=== PATIENT | female | born 1960 | race Caucasian/White ===

== ENCOUNTER → 2016-05-17 | Outpatient (CLI) | payer OTHER | END | disposition home or self-care (01) | LOC: LABWHC1 07:00 | PROVIDERS: ATTEND Internal Medicine | DX: E03.9 Hypothyroidism, unspecified (principal) | CPT/HCPCS: 36415; 82306; 84439; 84443; 84481 ==

== ENCOUNTER → 2016-07-01 | Outpatient (CLI) | payer OTHER ==
[2016-07-01 08:00] LABS: Basophils % (A) 1 %; CH 31.3; CHCM 32.9; Eosinophils # (A) 0.3 k/uL (0-0.7); Eosinophils % (A) 8 %; HCT 41.9 % (34.0-46.0); HDW 2.55; HGB 13.6 gm/dL (11.4-16.0); Luc # (Auto) 0.16; Luc % (Auto) 4; Lymphocytes # (A) 1.7 k/uL (1.0-4.8); Lymphocytes % (A) 41 %; MCHC 32.5 g/dL (31.0-37.0); MCV 95.3 fL (80.0-100.0); Mean Platelet Volume 6.9; Monocytes # (A) 0.4 k/uL (0-1.0); Monocytes % (A) 9 %; Neutrophils # (A) 1.6 k/uL (1.3-7.7); Neutrophils % (A) 39 %; RDW 12.6 % (11.5-15.5); WBC 4.3 k/uL (3.8-10.6); WBC (Perox) 4.54
--- NOTE | 2016-07-01 08:05 | XR ---
EXAMINATION TYPE: XR chest 1V DATE OF EXAM: 07/01/2016 7:55 AM COMPARISON: Prior chest x-ray September 16, 2009. HISTORY: History of TB presents with cough since March TECHNIQUE: Single frontal view of the chest is obtained. FINDINGS: There is no focal air space opacity, pleural effusion, or pneumothorax seen. The cardiac silhouette size is within normal limits. There is partial visualization of fusion plate lower cervica l spine on current study. IMPRESSION: No acute pulmonary process currently.
[2016-07-01 10:32] LABS: ALT 34 U/L (9-52); AST 21 U/L (14-36); Alkaline Phosphatase 51 U/L (38-126); Anion Gap 6 mmol/L; Blood Urea Nitrogen 13 mg/dL (7-17); Calcium 9.3 mg/dL (8.4-10.2); Carbon Dioxide 26 mmol/L (22-30); Chloride 111 mmol/L (98-107); Glucose 98 mg/dL (74-99); Non-African American GFR(MDRD) >60 (>60 ml/min/1.73 sqM); Potassium 4.5 mmol/L (3.5-5.1); Sodium 143 mmol/L (137-145); Total Bilirubin 0.4 mg/dL (0.2-1.3); Total Protein 6.6 g/dL (6.3-8.2)
[2016-07-01 12:24] LABS: Hepatitis B Core IgM Index 0.07
[2016-07-01 12:36] LABS: Hepatitis C Virus IgG Index 0.02
[2016-07-01 12:41] LABS: Hepatitis B Surface Antibody Negative (Negative)
[2016-07-01 12:42] LABS: Hepatitis C Virus IgG Ab Negative (Negative)
== END | disposition home or self-care (01) ==
LOC: LABWHC1 07:28
PROVIDERS: ATTEND Internal Medicine
DX: R05 Cough (principal); E03.9 Hypothyroidism, unspecified; E55.9 Vitamin D deficiency, unspecified; M05.79 Rheumatoid arthritis with rheumatoid factor of multiple sites without organ or systems involvement
CPT/HCPCS: 36415; 71010; 80053; 82306; 84439; 84443; 84481; 85025; 86480; 86704; 86705; 86706; 86803; 87340

== ENCOUNTER → 2016-09-23 | Outpatient (CLI) | payer OTHER ==
[2016-09-23 09:54] LABS: Basophils % (A) 1 %; CH 30.6; CHCM 32.3; Eosinophils # (A) 0.2 k/uL (0-0.7); Eosinophils % (A) 5 %; HCT 43.5 % (34.0-46.0); HDW 2.63; Luc # (Auto) 0.17; Luc % (Auto) 4; Lymphocytes # (A) 1.2 k/uL (1.0-4.8); Lymphocytes % (A) 31 %; MCH 30.5 pg (25.0-35.0); MCHC 32.1 g/dL (31.0-37.0); MCV 95.1 fL (80.0-100.0); Mean Platelet Volume 6.9; Monocytes # (A) 0.5 k/uL (0-1.0); Monocytes % (A) 12 %; Neutrophils # (A) 1.8 k/uL (1.3-7.7); Neutrophils % (A) 46 %; RBC 4.57 m/uL (3.80-5.40); RDW 13.2 % (11.5-15.5); WBC (Perox) 4.24
[2016-09-23 11:05] LABS: ALT 46 U/L (9-52); AST 30 U/L (14-36); Blood Urea Nitrogen 9 mg/dL (7-17); Non-African American GFR(MDRD) >60 (>60 ml/min/1.73 sqM)
[2016-09-23 11:37] LABS: Estradiol 99 pg/mL
== END | disposition home or self-care (01) ==
LOC: LABWHC1 09:09
PROVIDERS: ATTEND Internal Medicine Rheumatology
DX: N95.1 Menopausal and female climacteric states (principal); R61 Generalized hyperhidrosis; M05.79 Rheumatoid arthritis with rheumatoid factor of multiple sites without organ or systems involvement
CPT/HCPCS: 36415; 82565; 82670; 83001; 84403; 84450; 84460; 84520; 85025

== ENCOUNTER → 2016-12-28 | Outpatient (CLI) | payer OTHER ==
--- NOTE | 2016-12-28 09:54 | XR ---
EXAMINATION TYPE: XR foot complete RT DATE OF EXAM: 12/28/2016 CLINICAL HISTORY: pain TECHNIQUE: Frontal, lateral and oblique images of the right foot are obtained. COMPARISON: None. FINDINGS: There is no acute fracture/dislocation evident. The joint spaces appear within normal khoury its. The overlying soft tissue appears unremarkable. Small plantar calcaneal spur noted. IMPRESSION: There is no acute fracture or dislocation. ICD 10 NO FRACTURE, INITIAL EVALUATION
[2016-12-28 10:18] LABS: Basophils % (A) 1 %; CH 29.7; CHCM 32.6; Eosinophils # (A) 0.1 k/uL (0-0.7); Eosinophils % (A) 3 %; HCT 45.5 % (34.0-46.0); HDW 3.05; HGB 15.2 gm/dL (11.4-16.0); Luc # (Auto) 0.15; Luc % (Auto) 3; Lymphocytes # (A) 1.6 k/uL (1.0-4.8); Lymphocytes % (A) 29 %; MCH 30.6 pg (25.0-35.0); MCHC 33.4 g/dL (31.0-37.0); MCV 91.6 fL (80.0-100.0); Mean Platelet Volume 7.4; Monocytes # (A) 0.5 k/uL (0-1.0); Monocytes % (A) 9 %; Neutrophils % (A) 56 %; RBC 4.97 m/uL (3.80-5.40); RDW 13.6 % (11.5-15.5); WBC 5.3 k/uL (3.8-10.6); WBC (Perox) 5.47
[2016-12-28 10:44] LABS: ALT 51 U/L (9-52); AST 44 U/L (14-36); Alkaline Phosphatase 86 U/L (38-126); Anion Gap 10 mmol/L; Blood Urea Nitrogen 9 mg/dL (7-17); Calcium 9.4 mg/dL (8.4-10.2); Carbon Dioxide 26 mmol/L (22-30); Chloride 105 mmol/L (98-107); Cholesterol 309 mg/dL (<200); Glucose 90 mg/dL (74-99); HDL Cholesterol 100 mg/dL (40-60); Non-African American GFR(MDRD) >60 (>60 ml/min/1.73 sqM); Sodium 141 mmol/L (137-145); Total Bilirubin 0.6 mg/dL (0.2-1.3); Total Protein 7.2 g/dL (6.3-8.2)
== END | disposition home or self-care (01) ==
LOC: LABWHC1 08:51
PROVIDERS: ATTEND Internal Medicine
DX: M25.671 Stiffness of right ankle, not elsewhere classified (principal); I10 Essential (primary) hypertension; E78.2 Mixed hyperlipidemia; E03.9 Hypothyroidism, unspecified; E55.9 Vitamin D deficiency, unspecified
CPT/HCPCS: 36415; 80053; 80061; 82306; 84439; 84443; 84481; 85025

== ENCOUNTER → 2017-08-24 | Outpatient (CLI) | payer OTHER ==
[2017-08-24 22:20] LABS: Hemoglobin A1C 5.4 % (4.0-6.0)
== END ==
LOC: LABWHC1 12:27
PROVIDERS: ATTEND Obstetrics & Gynecology
DX: E03.9 Hypothyroidism, unspecified (principal); R73.9 Hyperglycemia, unspecified; Z79.890 Hormone replacement therapy
CPT/HCPCS: 36415; 82670; 83001; 83036; 84403

== ENCOUNTER → 2017-12-26 | Outpatient (CLI) | payer OTHER ==
[2017-12-26 08:08] LABS: ALT 30 U/L (9-52); AST 27 U/L (14-36); Albumin 3.6 g/dL (3.5-5.0); Alkaline Phosphatase 64 U/L (38-126); Anion Gap 7 mmol/L; Blood Urea Nitrogen 16 mg/dL (7-17); Calcium 9.4 mg/dL (8.4-10.2); Carbon Dioxide 26 mmol/L (22-30); Chloride 107 mmol/L (98-107); Cholesterol 185 mg/dL (<200); Glucose 100 mg/dL (74-99); HDL Cholesterol 53 mg/dL (40-60); LDL Cholesterol,Calculated 117 mg/dL (0-99); Potassium 4.4 mmol/L (3.5-5.1); Sodium 140 mmol/L (137-145); Total Bilirubin 0.6 mg/dL (0.2-1.3); Total Protein 6.4 g/dL (6.3-8.2); Triglycerides 77 mg/dL (<150)
[2017-12-26 08:19] LABS: T4, Free (Free Thyroxine) 1.69 ng/dL (0.78-2.19)
== END | disposition home or self-care (01) ==
LOC: LABWHC1 07:10
PROVIDERS: ATTEND Internal Medicine
DX: E78.2 Mixed hyperlipidemia (principal); E03.9 Hypothyroidism, unspecified
CPT/HCPCS: 36415; 80053; 80061; 84439; 84443; 84481

== ENCOUNTER → 2017-12-28 | Outpatient (CLI) | payer OTHER ==
--- NOTE | 2017-12-29 15:17 | MM ---
Reason for exam: screening (asymptomatic). Last mammogram was performed 4 years and 3 months ago. History: Patient is postmenopausal. Family history of breast cancer in mother at age 30. Benign excisional biopsy of the left breast, March 09, 2006. Took estrogen for 3 months. Physical Findings: A clinical breast exam by your physician is recommended on an annual basis and results should be correlated with mammographic findings. MG Screening Mammo w CAD Bilateral CC and MLO view(s) were taken. Prior study comparison: September 18, 2013, bilateral MG screening mammo w CAD. May 24, 2012, bilateral digital screening mammo w/CAD. The breast tissue is extremely dense which could obscure a lesion on mammography. Finding: There are new calcifications in the upper outer quadrant, posterior third position of the right breast. New finding since September 18, 2013 and May 24, 2012. ASSESSMENT: Incomplete: need additional imaging evaluation, BI-RAD 0 RECOMMENDATION: Special view mammogram of the right breast. [facility] will attempt to contact patient to return for supplemental views.
== END | disposition home or self-care (01) ==
LOC: RADMAMWWP 13:31
PROVIDERS: ATTEND Internal Medicine
DX: Z12.31 Encounter for screening mammogram for malignant neoplasm of breast (principal)
CPT/HCPCS: 77067

== ENCOUNTER → 2018-01-03 | Outpatient (CLI) | payer OTHER ==
--- NOTE | 2018-01-03 12:47 | MM ---
Reason for exam: additional evaluation requested from abnormal screening. Last mammogram was performed less than 1 month ago. History: Patient is postmenopausal. Family history of breast cancer in mother at age 30. Benign excisional biopsy of the left breast, March 09, 2006. Took estrogen for 3 months. Physical Findings: Nurse did not find any significant physical abnormalities on exam. MG Work Up Mamm w CAD RT CC with magnification and LM with magnification view(s) were taken of the right breast. Prior study comparison: December 28, 2017, bilateral MG screening mammo w CAD. September 18, 2013, bilateral MG screening mammo w CAD. The breast tissue is heterogeneously dense. This may lower the sensitivity of mammography. No significant new findings when compared with previous films. These results were verbally communicated with the patient and result sheet given to the patient on 01/03/18. ASSESSMENT: Benign, BI-RAD 2 RECOMMENDATION: Return to routine screening mammogram schedule for both breasts.
== END | disposition home or self-care (01) ==
LOC: RADMAMWWP 10:52
PROVIDERS: ATTEND Internal Medicine
DX: R92.8 Other abnormal and inconclusive findings on diagnostic imaging of breast (principal)
CPT/HCPCS: 77065

== ENCOUNTER → 2018-05-30 | Outpatient (CLI) | payer OTHER ==
--- NOTE | 2018-05-31 11:56 | XR ---
EXAMINATION TYPE: XR chest 2V DATE OF EXAM: 05/30/2018 COMPARISON: 07/01/2016 INDICATION: Cough x1 month TECHNIQUE: Frontal and lateral views of the chest are obtained. FINDINGS: The heart size is normal. The pulmonary vasculature is normal. The lungs are clear. IMPRESSION: 1. No acute pulmonary process.
== END ==
LOC: RADXRMAIN 16:37
PROVIDERS: ATTEND Ophthalmology
DX: R05 Cough (principal)
CPT/HCPCS: 71046

== ENCOUNTER → 2018-08-22 | Outpatient (CLI) | payer OTHER ==
--- NOTE | 2018-08-22 12:14 | CT ---
EXAMINATION TYPE: High resolution CT chest DATE OF EXAM: 08/22/2018 COMPARISON: Radiographs 05/30/2018 HISTORY: 58-year-old female Cough-5 months-non productive TECHNIQUE: Contiguous high resolution axial scanning of the chest without IV contrast utilizing 1 mm slice thickness and 1 cm gap for HRCT protocol. Both supine and prone imaging was performed. CT DLP: 201 mGycm Automated exposure control for dose reduction was used. FINDINGS: Heart normal size without pericardial effusion. Aorta normal caliber with mild atherosclerotic arch calcifications and conventional arch vessel branc bird anatomy. No thoracic lymphadenopathy by CT size criteria. Evaluation of the lungs shows mild diffuse bronchial wall thickening. Some mild patchy density at the inferior lingula. Additional strandy bibasilar densities. No honeycombing, bronchiectasis, centrilobular nodules, dominant groundglass, tree-in-bud opacities, or cystic change. HRCT technique limits assessment for small pulmonary nodules. Visualized upper abdomen shows no gross abnormality. Bones: Mild endplate spondylosis mid to lower thoracic spine. IMPRESSION: 1. SOME MILD PATCHY DENSITY AT THE INFERIOR LINGULA PERSISTS ON BOTH SUPINE AND PRONE IMAGING. PERSIS TENT ATELECTASIS VS DEVELOPING INFILTRATE ARE CONSIDERATIONS. 2. ADDITIONAL STRANDY AREAS OF BIBASILAR ATELECTASIS. NO SPECIFIC HRCT FINDINGS OF INTERSTITIAL PNEUM ONITIS OR FIBROSIS.
== END | disposition home or self-care (01) ==
LOC: RADCTMAIN 11:11
PROVIDERS: ATTEND Internal Medicine Critical Care Medicine
DX: J98.11 Atelectasis (principal); R91.8 Other nonspecific abnormal finding of lung field
CPT/HCPCS: 71250

== ENCOUNTER → 2019-02-27 | Outpatient (CLI) | payer OTHER ==
--- NOTE | 2019-02-28 11:54 | MM ---
Reason for exam: screening (asymptomatic). Last mammogram was performed 1 year and 2 months ago. History: Patient is postmenopausal. Family history of breast cancer in mother at age 30. Benign excisional biopsy of the left breast, March 09, 2006. Took estrogen for 3 months. Physical Findings: A clinical breast exam by your physician is recommended on an annual basis and results should be correlated with mammographic findings. MG 3D Screening Mammo W/Cad Bilateral CC and MLO view(s) were taken. XCCL view(s) were taken of the right breast. Prior study comparison: January 03, 2018, right breast MG work up mamm w CAD RT. December 28, 2017, bilateral MG screening mammo w CAD. The breast tissue is extremely dense which could obscure a lesion on mammography. There are benign appearing round calcifications bilaterally. There is no discrete abnormality. ASSESSMENT: Negative, BI-RAD 1 RECOMMENDATION: Routine screening mammogram of both breasts in 1 year.
== END | disposition home or self-care (01) ==
LOC: RADMAMWWP 07:33
PROVIDERS: ATTEND Obstetrics & Gynecology
DX: Z12.31 Encounter for screening mammogram for malignant neoplasm of breast (principal)
CPT/HCPCS: 77063; 77067

== ENCOUNTER → 2019-11-26 | Outpatient (CLI) | payer OTHER ==
[2019-11-26 11:08] LABS: Basophils # (A) 0.1 k/uL (0-0.2); Basophils % (A) 1 %; Eosinophils # (A) 0.2 k/uL (0-0.7); Eosinophils % (A) 4 %; HCT 45.8 % (34.0-46.0); HGB 14.5 gm/dL (11.4-16.0); Lymphocytes # (A) 1.6 k/uL (1.0-4.8); Lymphocytes % (A) 36 %; MCHC 31.6 g/dL (31.0-37.0); Monocytes # (A) 0.6 k/uL (0-1.0); Monocytes % (A) 13 %; Neutrophils % (A) 43 %; Platelet Count 273 k/uL (150-450); RBC 4.82 m/uL (3.80-5.40); RDW 13.8 % (11.5-15.5); WBC 4.5 k/uL (3.8-10.6)
[2019-11-26 16:12] LABS: African American GFR (CKD) 109.1 (60.0-200.0); Non-African American GFR(CKD) 94.2 (60.0-200.0)
== END | disposition home or self-care (01) ==
LOC: LABWHC1 09:26
PROVIDERS: ATTEND Internal Medicine Rheumatology
DX: M05.79 Rheumatoid arthritis with rheumatoid factor of multiple sites without organ or systems involvement (principal)
CPT/HCPCS: 36415; 82565; 84450; 84460; 84520; 85025

== ENCOUNTER → 2021-01-22 | Outpatient (CLI) | payer OTHER ==
[2021-01-22 17:30] LABS: Basophils # (A) 0.03 X 10*3/uL (0.00-0.10); Basophils % (A) 0.6 %; Eosinophils # (A) 0.16 X 10*3/uL (0.04-0.35); Eosinophils % (A) 3.2 %; HCT 42.7 % (37.2-46.3); HGB 13.8 g/dL (12.0-15.0); Lymphocytes # (A) 2.17 X 10*3/uL (0.90-5.00); Lymphocytes % (A) 43.8 %; MCH 30.6 pg (27.0-32.0); MCHC 32.3 g/dL (32.0-37.0); MCV 94.7 fL (80.0-97.0); Mean Platelet Volume 10.5 fL (9.5-12.2); Monocytes # (A) 0.72 X 10*3/uL (0.20-1.00); Monocytes % (A) 14.5 %; Neutrophils # (A) 1.85 X 10*3/uL (1.80-7.70); Neutrophils % (A) 37.5 %; Platelet Count 331 X 10*3/uL (140-440); RBC 4.51 X 10*6/uL (4.10-5.20); RDW 12.8 % (11.5-14.5); WBC 4.95 X 10*3/uL (4.50-10.00)
[2021-01-22 17:40] LABS: ALT 30 U/L (8-44); AST 33 U/L (13-35); African American GFR (CKD) 110.9 (60.0-200.0); Blood Urea Nitrogen 10.3 mg/dL (9.0-27.0); Non-African American GFR(CKD) 95.7 (60.0-200.0)
[2021-01-22 17:48] LABS: C Reactive Protein <0.30 mg/dL (0.00-0.80)
[2021-01-22 18:41] LABS: Erythrocyte Sedimentation Rate 6 mm/Hr (0-30)
== END | disposition home or self-care (01) ==
LOC: LABWHC1 08:40
PROVIDERS: ATTEND Internal Medicine Endocrinology, Diabetes & Metabolism
DX: E03.9 Hypothyroidism, unspecified (principal); E06.3 Autoimmune thyroiditis
CPT/HCPCS: 36415; 82565; 84443; 84450; 84460; 84520; 85025; 85652; 86140

== ENCOUNTER → 2022-01-26 | Outpatient (CLI) | payer OTHER | END | disposition home or self-care (01) | LOC: LABWHC1 08:10 | PROVIDERS: ATTEND Internal Medicine Endocrinology, Diabetes & Metabolism | DX: E06.3 Autoimmune thyroiditis (principal); E03.9 Hypothyroidism, unspecified | CPT/HCPCS: 36415; 84443 ==

== ENCOUNTER → 2022-05-03 | Outpatient (CLI) | payer OTHER ==
[2022-05-03 14:29] LABS: Basophils # (A) 0.01 X 10*3/uL (0.00-0.10); Basophils % (A) 0.2 %; Eosinophils # (A) 0.03 X 10*3/uL (0.04-0.35); Eosinophils % (A) 0.7 %; HCT 42.9 % (37.2-46.3); HGB 13.8 g/dL (12.0-15.0); Immature Grans, Automated 0 %; Lymphocytes # (A) 1.37 X 10*3/uL (0.90-5.00); MCH 30.5 pg (27.0-32.0); MCHC 32.2 g/dL (32.0-37.0); MCV 94.7 fL (80.0-97.0); Mean Platelet Volume 10.5 fL (9.5-12.2); Monocytes # (A) 0.55 X 10*3/uL (0.20-1.00); Monocytes % (A) 12.4 %; NRBC Per 100 WBC 0 /100 WBCS (0.0-0.0); Neutrophils # (A) 2.46 X 10*3/uL (1.80-7.70); Neutrophils % (A) 55.7 %; Platelet Count 261 X 10*3/uL (140-440); RBC 4.53 X 10*6/uL (4.10-5.20); RDW 12.5 % (11.5-14.5); WBC 4.42 X 10*3/uL (4.50-10.00)
[2022-05-03 15:07] LABS: Erythrocyte Sedimentation Rate 4 mm/Hr (0-30)
[2022-05-03 15:29] LABS: ALT 20 U/L (8-44); AST 22 U/L (13-35); African American GFR (CKD) 111.5 (60.0-200.0); Blood Urea Nitrogen 10.8 mg/dL (9.0-27.0); Non-African American GFR(CKD) 96.2 (60.0-200.0)
== END | disposition home or self-care (01) ==
LOC: LABWHC1 09:48
PROVIDERS: ATTEND Internal Medicine Rheumatology
DX: M05.79 Rheumatoid arthritis with rheumatoid factor of multiple sites without organ or systems involvement (principal); E03.9 Hypothyroidism, unspecified; E06.3 Autoimmune thyroiditis
CPT/HCPCS: 36415; 82565; 84439; 84443; 84450; 84460; 84481; 84520; 85025; 85652; 86140

== ENCOUNTER → 2022-07-27 | Outpatient (CLI) | payer OTHER ==
[2022-07-27 16:56] LABS: Thyroid Peroxidase Antibodies <9.0 U/mL (0.0-33.0)
[2022-07-27 17:11] LABS: T4, Free (Free Thyroxine) 0.68 ng/dL (0.800-1.800)
== END | disposition home or self-care (01) ==
LOC: LABWHC1 08:17
PROVIDERS: ATTEND Internal Medicine Endocrinology, Diabetes & Metabolism
DX: E03.9 Hypothyroidism, unspecified (principal); E06.3 Autoimmune thyroiditis
CPT/HCPCS: 36415; 82306; 82607; 82746; 84439; 84443; 84445; 84481; 86376; 86800

== ENCOUNTER → 2022-09-27 | Outpatient (CLI) | payer OTHER ==
--- NOTE | 2022-09-27 14:57 | XR ---
EXAMINATION TYPE: XR foot complete RT DATE OF EXAM: 09/27/2022 CLINICAL HISTORY: pain TECHNIQUE: Frontal, lateral and oblique images of the right foot are obtained. COMPARISON: None. FINDINGS: There is no acute fracture/dislocation evident. The joint spaces appear within normal khoury its. The overlying soft tissue appears unremarkable. Plantar calcaneal spur is noted. IMPRESSION: There is no acute fracture or dislocation. ICD 10 NO FRACTURE, INITIAL EVALUATION
--- NOTE | 2022-09-27 14:59 | XR ---
EXAMINATION TYPE: XR ankle complete RT DATE OF EXAM: 09/27/2022 COMPARISON: NONE HISTORY: Pain TECHNIQUE: Frontal, lateral and oblique images of the right ankle are obtained. COMPARISON: None. FINDINGS: There is no acute fracture/dislocation evident. The joint spaces appear within normal khoury its. The overlying soft tissue appears unremarkable. IMPRESSION: There is no acute fracture or dislocation seen.
== END | disposition home or self-care (01) ==
LOC: RADXRMAIN 14:26
PROVIDERS: ATTEND Ophthalmology
DX: S93.324A Dislocation of tarsometatarsal joint of right foot, initial encounter (principal)

== ENCOUNTER → 2024-05-04 | Outpatient (CLI) | payer OTHER ==
--- NOTE | 2024-05-04 11:50 | XR ---
EXAMINATION TYPE: XR lumbar spine 2 or 3V DATE OF EXAM: 05/04/2024 11:42 AM COMPARISON: None. CLINICAL INDICATION: Female, 63 years old with history of R10.2 M76 M25.55 GLUTEAL TENDINITIS/GEN ISC HIUM PN/PELVIC PN, pain TECHNIQUE: Frontal and lateral images of the lumbar spine are obtained. FINDINGS: There are 5 lumbar type vertebral bodies identified. The lumbar spine shows slight grade 1 anterolisthesis L4 on L5. Vertebral body heights and disk space heights are within normal limits. M [id number] overlying arterial vascular calcification is present. IMPRESSION: No acute fracture or dislocation is seen in the lumbar spine. [facility], , 05/04/2024 11:48 AM
--- NOTE | 2024-05-04 11:51 | XR ---
EXAMINATION TYPE: XR sacrum coccyx DATE OF EXAM: 05/04/2024 COMPARISON: NONE CLINICAL INDICATION: Female, 63 years old with history of R10.2 M76 M25.55 GLUTEAL TENDINITIS/GEN ISC HIUM PN/PELVIC PN; TECHNIQUE: 2 views of the sacrum and coccyx are obtained. FINDINGS: No acute displaced fracture in the sacrum or coccyx. Sacral alar are maintained bilaterally . Some overlying arteriovascular calcification is present. IMPRESSION: As above. [facility], , 05/04/2024 11:49 AM
== END | disposition home or self-care (01) ==
LOC: RADXRMAIN 11:09
PROVIDERS: ATTEND Ophthalmology
DX: R10.2 Pelvic and perineal pain (principal); M76.00 Gluteal tendinitis, unspecified hip
CPT/HCPCS: 72100; 72220

== ENCOUNTER → 2024-08-01 | Outpatient (CLI) | payer OTHER, MEDICARE ==
--- NOTE | 2024-08-01 07:54 | MM ---
Reason for Exam: Screening (asymptomatic). Last mammogram was performed 5 year(s) and 5 month(s) ago. Patient History: Menarche at age 11. First Full-Term at age 18. Right ovary removed at age 23. Hysterectomy at age 23. Postmenopausal. Estrogen for 3 months. 03/09/2006, Benign Excisional Biopsy on the left side. Mother had breast cancer, age 30. Risk Values: Rose 5 year model risk: 3.0%. NCI Lifetime model risk: 11.8%. Prior Study Comparison: 12/28/2017 Bilateral Screening Mammogram, [facility]. 01/03/2018 Right Diagnostic Mammogram, [facility]. 02/27/2019 Bilateral Screening Mammogram, [facility]. Tissue Density: The breasts are heterogeneously dense, which may obscure small masses. Findings: Analyzed By CAD. There is no suspicious group of microcalcifications or new suspicious mass in either breast. Overall Assessment: Negative, BI-RAD 1 Management: Screening Mammogram of both breasts in 1 year. . Patient should continue monthly self-breast exams. A clinical breast exam by your physician is recommended on an annual basis. This exam should not preclude additional follow-up of suspicious palpable abnormalities. Note on Rose scores and lifetime risk: 1. A Rose score greater than 3% is considered moderate risk. If this is the case, consider specialist referral to assess eligibility for a risk reducing agent. 2. If overall lifetime risk for the development of breast cancer is 20% or higher, the patient may qualify for future screening with alternating mammogram and breast MRI. [facility], , 08/01/2024 7:51 AM. Electronically signed and approved by: Solo Branham M.D. [facility]
== END | disposition home or self-care (01) ==
LOC: RADMAMWWP 07:27
PROVIDERS: ATTEND Obstetrics & Gynecology Obstetrics
DX: Z12.31 Encounter for screening mammogram for malignant neoplasm of breast (principal); R92.333 Mammographic heterogeneous density, bilateral breasts; Z78.0 Asymptomatic menopausal state; Z80.3 Family history of malignant neoplasm of breast
CPT/HCPCS: 77063; 77067